=== PATIENT | female | born 1985 | race Caucasian/White ===

== ENCOUNTER 2020-04-02 03:42 | Emergency (ER) | payer OTHER ==
[~2020-04-02] VITALS: Ht 154.9 cm; Wt 45.4 kg
[2020-04-02 04:13] LABS: HEMATOCRIT 41.3 % (37.0-47.0); HEMOGLOBIN 14.4 gm/dL (12.0-15.0); MCH 33.3 pg (26.0-34.0); MCHC 34.9 g/dL (28.0-37.0); MCV 95.4 fL (80.0-100.0); MPV 8.9 fl. (7.2-11.1); NUCLEATED RBCS 0 /100WBC; PLATELET COUNT* 288 thou/uL (150-400); RBC 4.33 mil/uL (4.20-5.00); RDW-CV 13.8 % (10.5-14.5); WBC 9.9 thou/uL (4.0-11.0)
[2020-04-02 04:24] LABS: CREATININE 1.1 mg/dL (0.6-1.3); POTASSIUM 3.4 mmol/L (3.5-5.1)
[2020-04-02 04:28] LABS: ALBUMIN 4.5 g/dL (3.4-5.0); TOTAL BILIRUBIN 0.8 mg/dL (<0.1-1.0); TOTAL PROTEIN 8.4 g/dL (6.4-8.2)
[2020-04-02 04:55] LABS: URINE BILIRUBIN NEGATIVE (Negative); URINE BLOOD NEGATIVE (Negative); URINE CLARITY CLEAR; URINE COLOR YELLOW; URINE GLUCOSE-RANDOM NEGATIVE (Negative); URINE LEUKOCYTES-REFLEX NEGATIVE (Negative); URINE NITRITE-REFLEX NEGATIVE (Negative); URINE PROTEIN TRACE (Negative); URINE SPECIFIC GRAVITY 1.025 (1.005-1.030); URINE UROBILINOGEN 0.2 E.U./dl (0.2-1.0)
[2020-04-02 05:00] LABS: URINE KETONES 3+ (Negative)
[2020-04-02 06:11] LABS: ABSOLUTE EOSINOPHILS 0.1 thou/uL (0.0-0.7); ABSOLUTE LYMPHOCYTES 1.1 thou/uL (0.8-5.3); ABSOLUTE MONOCYTES 0.1 thou/uL (0.0-1.2); ABSOLUTE NEUTROPHILS 8.6 thou/uL (1.6-8.1); ANISOCYTOSIS Occasional; PLATELET ESTIMATE ADEQUATE; TOXIC GRANULATION 1+
[2020-04-02] MEDS ORDERED: CIPROFLOXACIN500 M1 PO (06:21)
[2020-04-02] MEDS ORDERED: ZOFRAN ODT4 MG PO (06:21)
[2020-04-02] MEDS ORDERED: FLAGYL500 M1 PO (06:21)
[2020-04-02] MEDS ORDERED: HYDROCODON-ACE1 EAC7 PO (06:21)
[2020-04-02 07:52] VITALS: BP 94/64
== END 2020-04-02 07:54 | disposition home or self-care (01) ==
LOC: M.ERS 03:42
PROVIDERS: Personal Emergency Response Attendant
DX: K52.9 Noninfective gastroenteritis and colitis, unspecified (principal)

== ENCOUNTER 2021-02-16 12:24 | Emergency (ER) | payer OTHER ==
[~2021-02-16] VITALS: Ht 154.9 cm; Wt 44.5 kg
[~2021-02-16 12:24] MED LIST: CIPROFLOXACIN500 M1 PO; FLAGYL500 M1 PO; HYDROCODON-ACE1 EAC7 PO; ZOFRAN ODT4 MG PO
[2021-02-16 13:21] LABS: ABSOLUTE EOSINOPHILS 0.2 thou/uL (0.0-0.7); ABSOLUTE LYMPHOCYTES 2.6 thou/uL (0.8-5.3); ABSOLUTE MONOCYTES 0.4 thou/uL (0.0-1.2); ABSOLUTE NEUTROPHILS 2.9 thou/uL (1.6-8.1); BASOPHILS 0.6 %; HEMATOCRIT 41.7 % (37.0-47.0); HEMOGLOBIN 14.1 gm/dL (12.0-15.0); LYMPHOCYTES 42.4 %; MCH 32.3 pg (26.0-34.0); MCHC 33.7 g/dL (28.0-37.0); MCV 95.6 fL (80.0-100.0); MONOCYTES 6.7 %; MPV 8.5 fl. (7.2-11.1); NUCLEATED RBCS 0 /100WBC; PLATELET COUNT* 278 thou/uL (150-400); POLYS 47.3 %; RBC 4.36 mil/uL (4.20-5.00); RDW-CV 13.3 % (10.5-14.5)
[2021-02-16 13:29] LABS: CALCIUM 9.1 mg/dL (8.5-10.1); CREATININE 0.7 mg/dL (0.6-1.3); POTASSIUM 4.1 mmol/L (3.5-5.1)
[2021-02-16 13:33] LABS: ALBUMIN 4.4 g/dL (3.4-5.0); MAGNESIUM 2.2 mg/dL (1.8-2.4); TOTAL BILIRUBIN 0.7 mg/dL (<0.1-1.0); TOTAL PROTEIN 8.3 g/dL (6.4-8.2)
[2021-02-16 13:46] LABS: URINE BILIRUBIN NEGATIVE (Negative); URINE BLOOD NEGATIVE (Negative); URINE CLARITY CLEAR; URINE COLOR YELLOW; URINE GLUCOSE-RANDOM NEGATIVE (Negative); URINE KETONES NEGATIVE (Negative); URINE LEUKOCYTES-REFLEX NEGATIVE (Negative); URINE NITRITE-REFLEX NEGATIVE (Negative); URINE PROTEIN NEGATIVE (Negative); URINE UROBILINOGEN 0.2 E.U./dl (0.2-1.0)
[2021-02-16] MEDS ORDERED: ZOFRAN ODT4 MG PO ×2 (14:41→15:20)
[2021-02-16] MEDS ORDERED: VENTOLIN HFA 1818 GM INH ×2 (14:41→15:20)
[2021-02-16] MEDS ORDERED: MEDROLDOSEPACK PO (14:41)
[2021-02-16] MEDS ORDERED: DOXYCYCLINE 10100 MG PO ×2 (15:19→15:20)
[2021-02-16 15:20] VITALS: BP 119/68
--- NOTE | 2021-02-16 15:46 | EKG ---
[place] [address] ELECTROCARDIOGRAM REPORT Name: YONI PIERRE Room: [facility]#: [id number] Admission: 02/16/21 Attend Phys: Discharge: 02/16/21 Date of : 89 Date of Service: 02/16/21 1341 Report #: [id number] THIS REPORT FOR: //name// [facility] ED Test Date: 2021-02-16 Test Time: 13:41:30 Pat Name: YONI PIERRE Department: Room: Gender: Policeman: FERNANDO : 1985 Requested By: Lisa Land Order Number: [id number] MD: Holland Frye Measurements Intervals [place] Rate: 57 P: 44 PA: 155 QRS: 62 QRSD: 84 T: 39 QT: 398 QTc: 388 Interpretive Statements Sinus rhythm No previous ECG available for comparison Electronically Signed On 02-16-2021 15:46:42 CDT by Holland Frye [email or web address] <ELECTRONICALLY SIGNED> By: Holland Frye MD, [facility] 02/16/21 1546 1341 134 Holland Frye MD, FACC /EPI
== END 2021-02-16 15:21 | disposition home or self-care (01) ==
LOC: M.ERS 12:24
PROVIDERS: Nurse Practitioner Family
DX: B34.9 Viral infection, unspecified (principal); Z20.822 Contact with and (suspected) exposure to COVID-19; R11.2 Nausea with vomiting, unspecified; F12.90 Cannabis use, unspecified, uncomplicated; Z90.49 Acquired absence of other specified parts of digestive tract